=== PATIENT | male | born 1965 | race Caucasian/White ===

== ENCOUNTER 2018-11-13 14:47 | Inpatient (IN) | payer MEDICARE, OTHER ==
[2018-11-13] MEDS: HYDROmorphONE 1 MG/ML SYG IV (15:03)
[2018-11-13 16:02] LABS: ADD MAN DIFF? NO
[2018-11-13 16:04] LABS: BASOPHILS % 0.3 % (0.0-2.0); EOSINOPHILS # 0.2 10^3/ul (0.0-0.5); EOSINOPHILS % 2.3 % (0.0-7.0); HEMATOCRIT 23.3 % (42.0-52.0); HEMOGLOBIN 7.3 g/dl (14.0-18.0); LYMPHOCYTES # 0.7 10^3/ul (0.8-2.9); LYMPHOCYTES % 9.3 % (15.0-51.0); MEAN CORPUSCULAR HEMOGLOBIN 27.9 pg (29.0-33.0); MEAN CORPUSCULAR HGB CONC 31.3 g/dl (32.0-37.0); MEAN CORPUSCULAR VOLUME 88.9 fl (82.0-101.0); MEAN PLATELET VOLUME 12.2 fl (7.4-10.4); MONOCYTE # 0.4 10^3/ul (0.3-0.9); MONOCYTES % 5.5 % (0.0-11.0); NEUTROPHIL # 5.9 10^3/ul (1.6-7.5); PLATELET COUNT 187 10^3/UL (140-415); RED BLOOD COUNT 2.62 10^6/ul (4.70-6.10); RED CELL DISTRIBUTION WIDTH 14.1 % (11.5-14.5)
[2018-11-13 16:04] LABS: WHITE BLOOD COUNT 7.2 10^3/ul (4.8-10.8)
[2018-11-13 16:22] LABS: PROTIME 14.3 Sec (11.9-14.9); PT RATIO 1.1
[2018-11-13 16:23] LABS: PARTIAL THROMBOPLASTIN TIME 30.3 Sec (23.0-35.0)
[2018-11-13] MEDS: SOD CHLORIDE 0.9% 1,000 ML IV (16:45)
[2018-11-13] MEDS: DIPHTH/TET/ACEL PERTUSS (ADULT) 0.5 ML VIAL IM* (16:45)
[2018-11-13] MEDS: SOD CHLORIDE 0.9% 0 ML IV (16:46)
[2018-11-13] MEDS: CEFAZOLIN 2 GM/50 ML (PMX) 50 ML IVPB (16:57)
[2018-11-13] MEDS ORDERED: ONDANSETRON 4 MG INJ IV (17:00)
[2018-11-13] MEDS ORDERED: ACETAMINOPHEN 325 MG TAB PO (17:00)
[2018-11-13 17:03] LABS: ANION GAP 11 (5-13); BLOOD UREA NITROGEN 77 mg/dl (7-20); CALCIUM 6.4 mg/dl (8.4-10.2); CARBON DIOXIDE 15 mmol/L (21-31); CHLORIDE 114 mmol/L (97-110); CREATININE 7.88 mg/dl (0.61-1.24); ETHANOL < 10.0 mg/dl (0-0); Estimated GFR 7 mL/min (>60); GLUCOSE 302 mg/dl (70-220); POTASSIUM 5.3 mmol/L (3.5-5.1); SODIUM 140 mmol/L (135-144)
[2018-11-13] MEDS ORDERED: HYDROCODONE/APAP (5/325) TAB PO (17:30)
[2018-11-13] MEDS ORDERED: NACL 0.9% 3 ML SYG IV (17:30)
[2018-11-13] MEDS ORDERED: VANCOMYCIN IV PER PHARMACY XX (17:30)
[2018-11-13 17:54] LABS: AMPHETAMINE/METHAMPHETAMINE NEGATIVE (NEGATIVE); BARBITURATES NEGATIVE (NEGATIVE); BENZODIAZEPINES NEGATIVE (NEGATIVE); CANNABINOIDS NEGATIVE (NEGATIVE); COCAINE NEGATIVE (NEGATIVE); OPIATES NEGATIVE (NEGATIVE)
[2018-11-13 18:53] LABS: ALBUMIN 2.6 g/dl (3.3-4.9)
[2018-11-13] MEDS: morphine 2 MG INJ IV (20:23)
[2018-11-13] MEDS: SOD CHLORIDE 0.45% 1,000 ML IV (20:28)
[2018-11-13] MEDS: CEFEPIME 1GM/50 ML (PMX) 50 ML IVPB (20:29)
[2018-11-13] MEDS: FERROUS SULFATE (EC) 325 MG TAB PO (20:29)
[2018-11-13] MEDS: ATORVASTATIN 40 MG TAB PO (20:30)
[2018-11-13] MEDS: METOPROLOL 25 MG TAB PO (20:30)
[2018-11-13] MEDS: FUROSEMIDE 40 MG TAB PO (20:31)
[2018-11-13] MEDS: INSULIN ASPART [NOVOLOG] 3 ML PEN SC (21:48)
[2018-11-13] MEDS: INSULIN GLARGINE [LANTus] (100 UNITS/ML) SYG SC (21:49)
[2018-11-13] MEDS: CALCIUM GLUCONATE 10% 1 GM in DEXTROSE 5% 100 ML IVPB (21:50)
[2018-11-13] MEDS: VANCOMYCIN HCL 2 GM in SOD CHLORIDE 0.9% 500 ML IVPB (22:55)
[2018-11-14] MEDS: ACCU-CHEK XX (02:00)
[2018-11-14] MEDS: ONDANSETRON 4 MG INJ IV (04:37)
[2018-11-14] MEDS: PANTOPRAZOLE (EC) 40 MG TAB PO (06:00)
[2018-11-14] MEDS: SOD CHLORIDE 0.45% 1,000 ML IV ×2 (06:45→20:05)
[2018-11-14] MEDS: INSULIN ASPART [NOVOLOG] 3 ML PEN SC ×2 (06:57)
[2018-11-14] MEDS: THIAMINE 100 MG TAB PO (09:00)
[2018-11-14] MEDS: MULTIVIT/CA CARB/B CMPLX/FA TAB PO (09:00)
[2018-11-14] MEDS ORDERED: NON-FORMULARY/PATIENT OWN MED (Cholecalciferol (Vitamin D3) (Vitamin D-3) 2,000 UNIT) PO (09:00)
[2018-11-14] MEDS: CHOLECALCIFEROL 2,000 UNIT CAP PO (09:00)
[2018-11-14] MEDS: FUROSEMIDE 40 MG TAB PO ×2 (09:00→22:06)
[2018-11-14] MEDS: FERROUS SULFATE (EC) 325 MG TAB PO ×2 (09:00→22:11)
[2018-11-14] MEDS: METOPROLOL 25 MG TAB PO ×2 (09:00→22:07)
[2018-11-14 09:25] LABS: ADD UMIC YES; UR ASCORBIC ACID NEGATIVE (NEGATIVE); UR BACTERIA FEW /HPF (NONE SEEN); UR BILIRUBIN (Dip) NEGATIVE (NEGATIVE); UR BLOOD (Dip) 1+ mg/dL (NEGATIVE); UR CLARITY CLEAR (CLEAR); UR COLOR YELLOW (YELLOW); UR GLUCOSE (Dip) 2+ mg/dL (NEGATIVE); UR KETONES (Dip) NEGATIVE (NEGATIVE); UR LEUKOCYTE ESTERASE (Dip) NEGATIVE Leu/ul (NEGATIVE); UR NITRITE (Dip) NEGATIVE (NEGATIVE); UR RBC 1 /HPF (0-5); UR SPECIFIC GRAVITY (Dip) 1.011 (1.003-1.030); UR TOTAL PROTEIN (Dip) 3+ mg/dl (NEGATIVE); UR UROBILINOGEN (Dip) NEGATIVE (NEGATIVE); UR WBC 2 /HPF (0-5)
[2018-11-14 09:44] LABS: CREATININE,URINE RANDOM 71.23 mg/dl (20-370)
[2018-11-14 09:44] LABS: SODIUM,URINE RANDOM 67 mmol/L (30-90)
[2018-11-14 10:08] LABS: ADD MAN DIFF? NO
[2018-11-14 10:12] LABS: ABNORMAL IP MESSAGE 1; BASOPHILS % 0.4 % (0.0-2.0); EOSINOPHILS # 0.1 10^3/ul (0.0-0.5); EOSINOPHILS % 1.5 % (0.0-7.0); HEMATOCRIT 19.3 % (42.0-52.0); LYMPHOCYTES # 0.7 10^3/ul (0.8-2.9); LYMPHOCYTES % 8.9 % (15.0-51.0); MEAN CORPUSCULAR HEMOGLOBIN 28.5 pg (29.0-33.0); MEAN CORPUSCULAR HGB CONC 31.6 g/dl (32.0-37.0); MEAN CORPUSCULAR VOLUME 90.2 fl (82.0-101.0); MEAN PLATELET VOLUME 11.1 fl (7.4-10.4); MONOCYTE # 0.9 10^3/ul (0.3-0.9); MONOCYTES % 11.3 % (0.0-11.0); NEUTROPHIL # 6.4 10^3/ul (1.6-7.5); NEUTROPHILS % 77.4 % (39.0-77.0); PLATELET COUNT 137 10^3/UL (140-415); POSITIVE DIFF @See below; RED BLOOD COUNT 2.14 10^6/ul (4.70-6.10); RED CELL DISTRIBUTION WIDTH 14.3 % (11.5-14.5)
[2018-11-14 10:12] LABS: WHITE BLOOD COUNT 8.2 10^3/ul (4.8-10.8)
[2018-11-14 10:21] LABS: HEMOGLOBIN A1C 7.7 % (0-5.9)
[2018-11-14 10:23] LABS: HEMOGLOBIN 6.1 g/dl (14.0-18.0)
[2018-11-14 10:24] LABS: PATH REVIEW? YES
[2018-11-14 10:32] LABS: ALANINE AMINOTRANSFERASE 21 IU/L (13-69); ALBUMIN 2.4 g/dl (3.3-4.9); ALBUMIN/GLOBULIN RATIO 1.14; ALKALINE PHOSPHATASE 57 IU/L (42-121); ANION GAP 9 (5-13); ASPARTATE AMINO TRANSFERASE 13 IU/L (15-46); BILIRUBIN,INDIRECT 0.3 mg/dl (0-1.1); BILIRUBIN,TOTAL 0.3 mg/dl (0.2-1.3); BLOOD UREA NITROGEN 76 mg/dl (7-20); CALCIUM 6.1 mg/dl (8.4-10.2); CARBON DIOXIDE 14 mmol/L (21-31); CHLORIDE 116 mmol/L (97-110); CHOL/HDL RATIO 5.3 RATIO; CHOLESTEROL 86 mg/dl (100-200); CREATININE 7.96 mg/dl (0.61-1.24); Estimated GFR 7 mL/min (>60); GLUCOSE 158 mg/dl (70-220); HDL CHOLESTEROL 16 mg/dl (28-71); LDL CHOLESTEROL,CALCULATED 49 mg/dl; MAGNESIUM 1.4 mg/dl (1.7-2.5); POTASSIUM 4.9 mmol/L (3.5-5.1); SODIUM 139 mmol/L (135-144); TOTAL PROTEIN 4.5 g/dl (6.1-8.1); TRIGLYCERIDES 106 mg/dl (0-149)
[2018-11-14] MEDS ORDERED: INSULIN ASPART [NOVOLOG] 3 ML PEN SC (12:00)
[2018-11-14] MEDS: Insulin NOVOLOG SS MODERATE Algorithm(NPO/TPN/ENTERAL FEEDS) SC ×2 (12:08→17:49)
[2018-11-14 15:55] LABS: PARATHYROID HORMONE 358.6 pg/ml (24.0-73.0)
[2018-11-14] MEDS: EPOETIN ALFA-EPBX (ESRD) 10,000 UNIT/ML VIAL SC (17:42)
[2018-11-14 17:52] LABS: HEPATITIS B SURFACE ANTIGEN NEGATIVE (NEGATIVE)
[2018-11-14 18:15] LABS: HEPATITIS B SURFACE ANTIBODY NEGATIVE (NEGATIVE)
[2018-11-14] MEDS ORDERED: MANNITOL 25% 50 ML IV (19:00)
[2018-11-14 20:53] LABS: IMMEDIATE SPIN CROSSMATCH 1
[2018-11-14 21:54] LABS: IMMEDIATE SPIN CROSSMATCH 1 13
[2018-11-14] MEDS: ATORVASTATIN 10 MG TAB PO (22:06)
[2018-11-14] MEDS: ATORVASTATIN 40 MG TAB PO (22:06)
[2018-11-14] MEDS: hydrALAzine 20 MG INJ IV (22:07)
[2018-11-14] MEDS: HEPARIN 1000 UNITS/ML 10 ML INJ CATHETER (22:39)
[2018-11-14] MEDS: CEFEPIME 1GM/50 ML (PMX) 50 ML IVPB (23:44)
[2018-11-14] MEDS: morphine 2 MG INJ IV (23:55)
[2018-11-15] MEDS: Insulin NOVOLOG SS MODERATE Algorithm(NPO/TPN/ENTERAL FEEDS) SC ×4 (00:07→23:44)
[2018-11-15] MEDS: INSULIN GLARGINE [LANTus] (100 UNITS/ML) SYG SC ×2 (00:08→23:44)
[2018-11-15] MEDS: MAGNESIUM SULFATE 3 GM in DEXTROSE 5% 100 ML IVPB (00:43)
[2018-11-15] MEDS: ACCU-CHEK XX (02:00)
[2018-11-15] MEDS ORDERED: LORAZEPAM 2 MG INJ IV (02:30)
[2018-11-15] MEDS: DIPHENHYDRAMINE 50 MG INJ IV (02:40)
[2018-11-15 03:58] LABS: PROTEIN, TOTAL 4.2 g/dL (6.1-8.1)
[2018-11-15 05:27] LABS: ADD MAN DIFF? NO
[2018-11-15 05:33] LABS: ABNORMAL IP MESSAGE 1; BASOPHILS % 0.5 % (0.0-2.0); EOSINOPHILS # 0.2 10^3/ul (0.0-0.5); EOSINOPHILS % 1.7 % (0.0-7.0); HEMATOCRIT 22.6 % (42.0-52.0); HEMOGLOBIN 7.4 g/dl (14.0-18.0); LYMPHOCYTES # 0.4 10^3/ul (0.8-2.9); LYMPHOCYTES % 4.6 % (15.0-51.0); MEAN CORPUSCULAR HEMOGLOBIN 29.2 pg (29.0-33.0); MEAN CORPUSCULAR HGB CONC 32.7 g/dl (32.0-37.0); MEAN CORPUSCULAR VOLUME 89.3 fl (82.0-101.0); MEAN PLATELET VOLUME 11.9 fl (7.4-10.4); MONOCYTES % 11.4 % (0.0-11.0); NEUTROPHIL # 7.1 10^3/ul (1.6-7.5); NEUTROPHILS % 81.1 % (39.0-77.0); PLATELET COUNT 125 10^3/UL (140-415); POSITIVE DIFF @See below; RED BLOOD COUNT 2.53 10^6/ul (4.70-6.10); RED CELL DISTRIBUTION WIDTH 14.3 % (11.5-14.5)
[2018-11-15 05:33] LABS: WHITE BLOOD COUNT 8.7 10^3/ul (4.8-10.8)
[2018-11-15] MEDS: PANTOPRAZOLE (EC) 40 MG TAB PO (06:00)
[2018-11-15 06:14] LABS: VANCOMYCIN,RANDOM 12.7 ug/ml
[2018-11-15 06:35] LABS: ANION GAP 10 (5-13); BLOOD UREA NITROGEN 62 mg/dl (7-20); CALCIUM 6.4 mg/dl (8.4-10.2); CARBON DIOXIDE 18 mmol/L (21-31); CHLORIDE 113 mmol/L (97-110); CREATININE 6.28 mg/dl (0.61-1.24); Estimated GFR 9 mL/min (>60); GLUCOSE 148 mg/dl (70-220); MAGNESIUM 2.1 mg/dl (1.7-2.5); PHOSPHORUS 4.8 mg/dl (2.5-4.9); POTASSIUM 4.4 mmol/L (3.5-5.1); SODIUM 141 mmol/L (135-144)
[2018-11-15] MEDS: FUROSEMIDE 40 MG TAB PO ×2 (09:00→23:24)
[2018-11-15] MEDS: MULTIVIT/CA CARB/B CMPLX/FA TAB PO (09:00)
[2018-11-15] MEDS: THIAMINE 100 MG TAB PO (09:00)
[2018-11-15] MEDS: FERROUS SULFATE (EC) 325 MG TAB PO ×2 (09:00→23:17)
[2018-11-15] MEDS: METOPROLOL 25 MG TAB PO ×2 (09:00→23:21)
[2018-11-15] MEDS: CHOLECALCIFEROL 2,000 UNIT CAP PO (09:00)
[2018-11-15] MEDS: SOD CHLORIDE 0.45% 1,000 ML IV ×2 (09:25→22:45)
[2018-11-15] MEDS: hydrALAzine 20 MG INJ IV ×2 (11:01→19:26)
[2018-11-15] MEDS ORDERED: BUPIVACAINE 0.25% (MPF) 30 ML INJ (14:51)
[2018-11-15] MEDS ORDERED: POLYMYXIN/BACITRACIN 1L IRRIG (14:52)
[2018-11-15] MEDS ORDERED: SUCCINYLCHOLINE CHLORIDE 100 MG/5 ML SYG IV (15:22)
[2018-11-15] MEDS ORDERED: DESFLURANE 15 MIN (15:22)
[2018-11-15] MEDS ORDERED: ROCURONIUM 50 MG INJ (15:22)
[2018-11-15] MEDS ORDERED: CEFAZOLIN 1 GM INJ (15:23)
[2018-11-15] MEDS ORDERED: ROPIVACAINE 0.5 % 30 ML VIAL (15:23)
[2018-11-15] MEDS ORDERED: morphine SULFATE/PF (10 MG/10 ML) INJ (15:23)
[2018-11-15] MEDS ORDERED: MIDAZOLAM 1 MG/ML 2 ML INJ (15:23)
[2018-11-15] MEDS ORDERED: PROPOFOL 100 ML (15:23)
[2018-11-15] MEDS ORDERED: BACITRACIN 50000 UNITS INJ (15:49)
[2018-11-15] MEDS ORDERED: VANCOMYCIN 1 GM INJ ×2 (15:51→15:57)
[2018-11-15] MEDS ORDERED: POLYMYXIN B 500000 UNIT INJ (15:52)
[2018-11-15 15:57] LABS: CREATININE, RANDOM URINE 77 mg/dL (20-320); MICROALBUMIN 231.9 mg/dL; MICROALBUMIN/CREATININE RATIO 3012 (<30); PROTEIN/CREATININE RATIO 5766 mg/g creat (22-128)
[2018-11-15] MEDS ORDERED: VANCOMYCIN 1 GM 250 ML IVPB (18:00)
[2018-11-15] MEDS ORDERED: SUGAMMADEX SODIUM 200 MG/2 ML VIAL IV (18:14)
[2018-11-15] MEDS ORDERED: DEXAMETHASONE 4 MG/ML 5 ML INJ (18:18)
[2018-11-15] MEDS ORDERED: ONDANSETRON 4 MG INJ (18:18)
[2018-11-15] MEDS ORDERED: METOCLOPRAMIDE 10 MG INJ (18:18)
[2018-11-15] MEDS ORDERED: morphine 2 MG INJ IV ×2 (18:30)
[2018-11-15] MEDS ORDERED: OXYCODONE/ACETAMINOPHEN (5/325) TAB PO (18:30)
[2018-11-15] MEDS ORDERED: ACETAMINOPHEN 500 MG TAB PO (18:30)
[2018-11-15] MEDS ORDERED: HYDROCODONE/APAP (5/325) TAB PO (18:30)
[2018-11-15] MEDS ORDERED: MEPERIDINE 25 MG INJ IV (18:30)
[2018-11-15] MEDS ORDERED: ONDANSETRON 4 MG INJ IV ×2 (18:30)
[2018-11-15] MEDS ORDERED: NALBUPHINE HCL (10 MG/1 ML) INJ IV (18:30)
[2018-11-15] MEDS ORDERED: EPHEDrine 25 MG/5 ML SYG IV (18:30)
[2018-11-15] MEDS ORDERED: NALOXONE (0.4 MG/ML) INJ IV (18:30)
[2018-11-15] MEDS ORDERED: HYDROmorphONE 0.5 MG/0.5 ML SYG IV ×2 (18:30)
[2018-11-15] MEDS ORDERED: METOCLOPRAMIDE 10 MG INJ IV (18:30)
[2018-11-15] MEDS ORDERED: HYDROmorphONE 1 MG/5 ML IV SYRINGE IV ×2 (18:30)
[2018-11-15] MEDS ORDERED: FENTAnyl 50 MCG/ML VIAL IV ×2 (18:30)
[2018-11-15] MEDS ORDERED: DIPHENHYDRAMINE 50 MG INJ IV ×2 (18:30)
[2018-11-15 19:02] LABS: ADD MAN DIFF? NO
[2018-11-15 19:04] LABS: BASOPHIL # 0.1 10^3/ul (0.0-0.1); BASOPHILS % 0.5 % (0.0-2.0); EOSINOPHILS # 0.2 10^3/ul (0.0-0.5); EOSINOPHILS % 2.1 % (0.0-7.0); HEMATOCRIT 27.6 % (42.0-52.0); HEMOGLOBIN 8.9 g/dl (14.0-18.0); LYMPHOCYTES # 1.1 10^3/ul (0.8-2.9); LYMPHOCYTES % 11.4 % (15.0-51.0); MEAN CORPUSCULAR HEMOGLOBIN 29.2 pg (29.0-33.0); MEAN CORPUSCULAR HGB CONC 32.2 g/dl (32.0-37.0); MEAN CORPUSCULAR VOLUME 90.5 fl (82.0-101.0); MEAN PLATELET VOLUME 10.7 fl (7.4-10.4); MONOCYTE # 1.3 10^3/ul (0.3-0.9); MONOCYTES % 12.7 % (0.0-11.0); NEUTROPHIL # 7.2 10^3/ul (1.6-7.5); NEUTROPHILS % 72.4 % (39.0-77.0); PLATELET COUNT 140 10^3/UL (140-415); RED BLOOD COUNT 3.05 10^6/ul (4.70-6.10); RED CELL DISTRIBUTION WIDTH 14.5 % (11.5-14.5)
[2018-11-15 19:07] LABS: ALBUMIN 2.1 g/dL (3.8-4.8); ALPHA-1-GLOBULINS 0.3 g/dL (0.2-0.3); ALPHA-2-GLOBULINS 0.7 g/dL (0.5-0.9); BETA 2 GLOBULINS 0.3 g/dL (0.2-0.5); BETA GLOBULINS 0.3 g/dL (0.4-0.6); GAMMA GLOBULINS 0.5 g/dL (0.8-1.7)
[2018-11-15] MEDS ORDERED: hydrALAzine 20 MG INJ (19:24)
[2018-11-15] MEDS: ENOXAPARIN 30 MG/0.3 ML SYG SC (19:30)
[2018-11-15] MEDS ORDERED: LABETALOL HCL 20MG INJ (19:48)
[2018-11-15] MEDS: LABETALOL HCL 20MG INJ IV (19:49)
[2018-11-15] MEDS ORDERED: CEFAZOLIN 1 GM/50 ML (PMX) 50 ML IVPB (19:58)
[2018-11-15] MEDS: CEFAZOLIN 1 GM/50 ML (PMX) 50 ML IVPB (20:00)
[2018-11-15] MEDS: ATORVASTATIN 40 MG TAB PO (23:17)
[2018-11-15] MEDS: ATORVASTATIN 10 MG TAB PO (23:17)
[2018-11-15] MEDS: SOD CHLORIDE 0.9% 1,000 ML IV (23:33)
[2018-11-16] MEDS: hydrALAzine 20 MG INJ IV ×4 (00:48→21:37)
[2018-11-16] MEDS: ACCU-CHEK XX (02:00)
[2018-11-16] MEDS: SOD CHLORIDE 0.9% 1,000 ML IV ×2 (04:37→08:11)
[2018-11-16] MEDS: PANTOPRAZOLE (EC) 40 MG TAB PO (05:14)
[2018-11-16] MEDS: Insulin NOVOLOG SS MODERATE Algorithm(NPO/TPN/ENTERAL FEEDS) SC ×2 (05:44)
[2018-11-16 05:49] LABS: ADD MAN DIFF? NO
[2018-11-16 05:51] LABS: WHITE BLOOD COUNT 11.3 10^3/ul (4.8-10.8)
[2018-11-16 05:51] LABS: ABNORMAL IP MESSAGE 1; BASOPHILS % 0.2 % (0.0-2.0); HEMATOCRIT 28.7 % (42.0-52.0); HEMOGLOBIN 9.2 g/dl (14.0-18.0); LYMPHOCYTES # 0.3 10^3/ul (0.8-2.9); LYMPHOCYTES % 2.4 % (15.0-51.0); MEAN CORPUSCULAR HEMOGLOBIN 28.8 pg (29.0-33.0); MEAN CORPUSCULAR HGB CONC 32.1 g/dl (32.0-37.0); MEAN PLATELET VOLUME 11.3 fl (7.4-10.4); MONOCYTE # 0.3 10^3/ul (0.3-0.9); MONOCYTES % 2.8 % (0.0-11.0); NEUTROPHIL # 10.5 10^3/ul (1.6-7.5); NEUTROPHILS % 93.1 % (39.0-77.0); PLATELET COUNT 137 10^3/UL (140-415); POSITIVE DIFF @See below; RED BLOOD COUNT 3.19 10^6/ul (4.70-6.10); RED CELL DISTRIBUTION WIDTH 14.6 % (11.5-14.5)
[2018-11-16 06:09] LABS: ANION GAP 12 (5-13); BLOOD UREA NITROGEN 60 mg/dl (7-20); CALCIUM 6.8 mg/dl (8.4-10.2); CARBON DIOXIDE 16 mmol/L (21-31); CHLORIDE 109 mmol/L (97-110); CREATININE 6.95 mg/dl (0.61-1.24); Estimated GFR 8 mL/min (>60); GLUCOSE 273 mg/dl (70-220); MAGNESIUM 1.8 mg/dl (1.7-2.5); PHOSPHORUS 6.5 mg/dl (2.5-4.9); POTASSIUM 4.9 mmol/L (3.5-5.1); SODIUM 137 mmol/L (135-144)
[2018-11-16] MEDS: Insulin NOVOLOG SS MODERATE Algorithm (SS with meals and bedtime) SC ×4 (08:00→21:19)
[2018-11-16] MEDS: MULTIVIT/CA CARB/B CMPLX/FA TAB PO (08:12)
[2018-11-16] MEDS: FERROUS SULFATE (EC) 325 MG TAB PO ×2 (08:13→21:01)
[2018-11-16] MEDS: CHOLECALCIFEROL 2,000 UNIT CAP PO (08:13)
[2018-11-16] MEDS: THIAMINE 100 MG TAB PO (08:13)
[2018-11-16] MEDS: METOPROLOL 25 MG TAB PO ×2 (08:15→21:01)
[2018-11-16] MEDS: FUROSEMIDE 40 MG TAB PO ×2 (08:16→21:00)
[2018-11-16] MEDS ORDERED: hydrALAzine 20 MG INJ IV (10:00)
[2018-11-16] MEDS: NIFEdipine (XL) 30 MG TAB PO ×2 (10:07→21:00)
[2018-11-16] MEDS ORDERED: INSULIN ASPART [NOVOLOG] 3 ML PEN SC (11:30)
[2018-11-16] MEDS: HEPARIN 1000 UNITS/ML 10 ML INJ CATHETER (14:13)
[2018-11-16] MEDS: CEFTRIAXONE 1 GM/50 ML (PMX) 50 ML IVPB (15:40)
[2018-11-16] MEDS: EPOETIN ALFA-EPBX (ESRD) 10,000 UNIT/ML VIAL SC (17:39)
[2018-11-16] MEDS: INSULIN ASPART [NOVOLOG] 3 ML PEN SC (17:43)
[2018-11-16] MEDS: ATORVASTATIN 40 MG TAB PO (20:59)
[2018-11-16] MEDS: ATORVASTATIN 10 MG TAB PO (20:59)
[2018-11-16] MEDS: INSULIN GLARGINE [LANTus] (100 UNITS/ML) SYG SC (21:18)
[2018-11-16] MEDS: HEPARIN 5,000 UNIT/1 ML VIAL SC (21:22)
[2018-11-17] MEDS: ACCU-CHEK XX (02:14)
[2018-11-17] MEDS: ACETAMINOPHEN 325 MG TAB PO (04:48)
[2018-11-17] MEDS: PANTOPRAZOLE (EC) 40 MG TAB PO (05:41)
[2018-11-17 06:08] LABS: ADD MAN DIFF? NO
[2018-11-17 06:13] LABS: WHITE BLOOD COUNT 10.8 10^3/ul (4.8-10.8)
[2018-11-17 06:13] LABS: BASOPHILS % 0.2 % (0.0-2.0); EOSINOPHILS # 0.2 10^3/ul (0.0-0.5); EOSINOPHILS % 1.9 % (0.0-7.0); HEMATOCRIT 25.1 % (42.0-52.0); LYMPHOCYTES # 0.8 10^3/ul (0.8-2.9); LYMPHOCYTES % 7.1 % (15.0-51.0); MEAN CORPUSCULAR HEMOGLOBIN 28.6 pg (29.0-33.0); MEAN CORPUSCULAR HGB CONC 31.9 g/dl (32.0-37.0); MEAN CORPUSCULAR VOLUME 89.6 fl (82.0-101.0); MEAN PLATELET VOLUME 12.1 fl (7.4-10.4); MONOCYTE # 1.1 10^3/ul (0.3-0.9); MONOCYTES % 10.3 % (0.0-11.0); NEUTROPHIL # 8.5 10^3/ul (1.6-7.5); NEUTROPHILS % 79.2 % (39.0-77.0); PLATELET COUNT 155 10^3/UL (140-415); RED CELL DISTRIBUTION WIDTH 14.6 % (11.5-14.5)
[2018-11-17 07:06] LABS: ANION GAP 9 (5-13); BLOOD UREA NITROGEN 55 mg/dl (7-20); CALCIUM 6.5 mg/dl (8.4-10.2); CARBON DIOXIDE 21 mmol/L (21-31); CHLORIDE 106 mmol/L (97-110); CREATININE 6.13 mg/dl (0.61-1.24); Estimated GFR 10 mL/min (>60); GLUCOSE 246 mg/dl (70-220); MAGNESIUM 1.7 mg/dl (1.7-2.5); PHOSPHORUS 5.2 mg/dl (2.5-4.9); POTASSIUM 3.8 mmol/L (3.5-5.1); SODIUM 136 mmol/L (135-144)
[2018-11-17] MEDS: SEVELAMER CARBONATE 800 MG TABLET PO ×2 (08:43→12:37)
[2018-11-17] MEDS: FUROSEMIDE 40 MG TAB PO ×2 (08:44→23:54)
[2018-11-17] MEDS: THIAMINE 100 MG TAB PO (08:45)
[2018-11-17] MEDS: CHOLECALCIFEROL 2,000 UNIT CAP PO (08:45)
[2018-11-17] MEDS: MULTIVIT/CA CARB/B CMPLX/FA TAB PO (08:45)
[2018-11-17] MEDS: METOPROLOL 25 MG TAB PO ×2 (08:46→23:54)
[2018-11-17] MEDS: NIFEdipine (XL) 30 MG TAB PO ×2 (08:46→23:53)
[2018-11-17] MEDS: Insulin NOVOLOG SS MODERATE Algorithm (SS with meals and bedtime) SC ×4 (08:52→21:00)
[2018-11-17] MEDS: HEPARIN 5,000 UNIT/1 ML VIAL SC ×2 (08:52→20:44)
[2018-11-17] MEDS: INSULIN ASPART [NOVOLOG] 3 ML PEN SC ×3 (08:52→18:00)
[2018-11-17] MEDS: FERROUS SULFATE (EC) 325 MG TAB PO ×2 (08:56→20:43)
[2018-11-17] MEDS: hydrALAzine 20 MG INJ IV ×2 (17:47→23:54)
[2018-11-17] MEDS: LABETALOL HCL 20MG INJ IV (18:53)
[2018-11-17] MEDS: ATORVASTATIN 10 MG TAB PO (20:43)
[2018-11-17] MEDS: INSULIN GLARGINE [LANTus] (100 UNITS/ML) SYG SC (20:46)
[2018-11-17] MEDS: HEPARIN 1000 UNITS/ML 10 ML INJ CATHETER (21:45)
[2018-11-18] MEDS: HYDROCODONE/APAP (5/325) TAB PO (01:32)
[2018-11-18] MEDS: ACCU-CHEK XX (02:00)
[2018-11-18] MEDS: LABETALOL HCL 20MG INJ IV ×2 (03:37→03:45)
[2018-11-18] MEDS: ONDANSETRON 4 MG INJ IV ×3 (03:42→17:33)
[2018-11-18] MEDS: morphine 4 MG/ML VIAL IV (03:45)
[2018-11-18] MEDS: PANTOPRAZOLE (EC) 40 MG TAB PO (03:49)
[2018-11-18 06:19] LABS: ADD MAN DIFF? NO
[2018-11-18 06:31] LABS: WHITE BLOOD COUNT 10.1 10^3/ul (4.8-10.8)
[2018-11-18 06:31] LABS: BASOPHILS % 0.4 % (0.0-2.0); EOSINOPHILS # 0.3 10^3/ul (0.0-0.5); EOSINOPHILS % 2.5 % (0.0-7.0); HEMATOCRIT 25.9 % (42.0-52.0); HEMOGLOBIN 8.4 g/dl (14.0-18.0); LYMPHOCYTES # 0.7 10^3/ul (0.8-2.9); LYMPHOCYTES % 6.5 % (15.0-51.0); MEAN CORPUSCULAR HEMOGLOBIN 29.1 pg (29.0-33.0); MEAN CORPUSCULAR HGB CONC 32.4 g/dl (32.0-37.0); MEAN CORPUSCULAR VOLUME 89.6 fl (82.0-101.0); MONOCYTE # 1.2 10^3/ul (0.3-0.9); MONOCYTES % 11.8 % (0.0-11.0); NEUTROPHIL # 7.9 10^3/ul (1.6-7.5); NEUTROPHILS % 77.6 % (39.0-77.0); PLATELET COUNT 167 10^3/UL (140-415); RED BLOOD COUNT 2.89 10^6/ul (4.70-6.10); RED CELL DISTRIBUTION WIDTH 14.2 % (11.5-14.5)
[2018-11-18 07:23] LABS: ANION GAP 10 (5-13); BLOOD UREA NITROGEN 39 mg/dl (7-20); CALCIUM 6.7 mg/dl (8.4-10.2); CARBON DIOXIDE 26 mmol/L (21-31); CHLORIDE 98 mmol/L (97-110); CREATININE 4.42 mg/dl (0.61-1.24); Estimated GFR 14 mL/min (>60); GLUCOSE 221 mg/dl (70-220); MAGNESIUM 1.5 mg/dl (1.7-2.5); PHOSPHORUS 4.5 mg/dl (2.5-4.9); POTASSIUM 3.8 mmol/L (3.5-5.1); SODIUM 134 mmol/L (135-144)
[2018-11-18] MEDS: NIFEdipine (XL) 30 MG TAB PO ×2 (08:16→20:42)
[2018-11-18] MEDS: METOPROLOL 50 MG TAB PO ×2 (08:19→20:43)
[2018-11-18] MEDS: FUROSEMIDE 40 MG TAB PO ×2 (08:19→20:42)
[2018-11-18 08:27] LABS: VANCOMYCIN,RANDOM 8.1 ug/ml
[2018-11-18] MEDS: Insulin NOVOLOG SS MODERATE Algorithm (SS with meals and bedtime) SC ×4 (08:35→20:52)
[2018-11-18] MEDS: INSULIN ASPART [NOVOLOG] 3 ML PEN SC ×3 (08:35→17:28)
[2018-11-18] MEDS: HEPARIN 5,000 UNIT/1 ML VIAL SC ×2 (08:35→20:52)
[2018-11-18] MEDS: MULTIVIT/CA CARB/B CMPLX/FA TAB PO (10:07)
[2018-11-18] MEDS: THIAMINE 100 MG TAB PO (10:07)
[2018-11-18] MEDS: SEVELAMER CARBONATE 800 MG TABLET PO ×4 (10:07→17:29)
[2018-11-18] MEDS: FERROUS SULFATE (EC) 325 MG TAB PO ×2 (10:08→20:41)
[2018-11-18] MEDS: CEFTRIAXONE 1 GM/50 ML (PMX) 50 ML IVPB (10:08)
[2018-11-18] MEDS: CHOLECALCIFEROL 2,000 UNIT CAP PO (10:08)
[2018-11-18] MEDS: hydrALAzine 20 MG INJ IV (12:48)
[2018-11-18] MEDS: VANCOMYCIN 1.25 GM/NS 250 ML 250 ML IVPB (13:11)
[2018-11-18] MEDS: ATORVASTATIN 10 MG TAB PO (20:41)
[2018-11-18] MEDS: INSULIN GLARGINE [LANTus] (100 UNITS/ML) SYG SC (20:52)
[2018-11-19] MEDS: ACCU-CHEK XX (02:00)
[2018-11-19 05:53] LABS: ADD MAN DIFF? NO
[2018-11-19 06:00] LABS: BASOPHILS % 0.4 % (0.0-2.0); EOSINOPHILS # 0.3 10^3/ul (0.0-0.5); EOSINOPHILS % 2.6 % (0.0-7.0); HEMATOCRIT 24.6 % (42.0-52.0); LYMPHOCYTES # 0.8 10^3/ul (0.8-2.9); LYMPHOCYTES % 8.1 % (15.0-51.0); MEAN CORPUSCULAR HEMOGLOBIN 28.8 pg (29.0-33.0); MEAN CORPUSCULAR HGB CONC 32.5 g/dl (32.0-37.0); MEAN CORPUSCULAR VOLUME 88.5 fl (82.0-101.0); MEAN PLATELET VOLUME 11.6 fl (7.4-10.4); NEUTROPHIL # 7.6 10^3/ul (1.6-7.5); NEUTROPHILS % 77.5 % (39.0-77.0); PLATELET COUNT 167 10^3/UL (140-415); RED BLOOD COUNT 2.78 10^6/ul (4.70-6.10); RED CELL DISTRIBUTION WIDTH 13.7 % (11.5-14.5)
[2018-11-19 06:00] LABS: WHITE BLOOD COUNT 9.8 10^3/ul (4.8-10.8)
[2018-11-19] MEDS: PANTOPRAZOLE 40 MG INJ IV (06:31)
[2018-11-19 06:55] LABS: ANION GAP 10 (5-13); BLOOD UREA NITROGEN 42 mg/dl (7-20); CALCIUM 6.5 mg/dl (8.4-10.2); CARBON DIOXIDE 25 mmol/L (21-31); CHLORIDE 100 mmol/L (97-110); CREATININE 5.34 mg/dl (0.61-1.24); Estimated GFR 11 mL/min (>60); GLUCOSE 135 mg/dl (70-220); MAGNESIUM 1.6 mg/dl (1.7-2.5); PHOSPHORUS 4.7 mg/dl (2.5-4.9); POTASSIUM 3.7 mmol/L (3.5-5.1); SODIUM 135 mmol/L (135-144)
[2018-11-19] MEDS: Insulin NOVOLOG SS MODERATE Algorithm (SS with meals and bedtime) SC ×4 (08:00→20:57)
[2018-11-19] MEDS: SEVELAMER CARBONATE 800 MG TABLET PO ×3 (08:20→17:23)
[2018-11-19] MEDS: MAGNESIUM SULFATE 2 GM/50 ML 50 ML IVPB (08:27)
[2018-11-19] MEDS: INSULIN ASPART [NOVOLOG] 3 ML PEN SC ×3 (08:38→17:46)
[2018-11-19] MEDS: CEFTRIAXONE 1 GM/50 ML (PMX) 50 ML IVPB (09:20)
[2018-11-19] MEDS: MULTIVIT/CA CARB/B CMPLX/FA TAB PO (09:25)
[2018-11-19] MEDS: THIAMINE 100 MG TAB PO (09:25)
[2018-11-19] MEDS: FUROSEMIDE 40 MG TAB PO ×2 (09:26→20:55)
[2018-11-19] MEDS: FERROUS SULFATE (EC) 325 MG TAB PO ×2 (09:26→20:56)
[2018-11-19] MEDS: CHOLECALCIFEROL 2,000 UNIT CAP PO (09:26)
[2018-11-19] MEDS: HEPARIN 5,000 UNIT/1 ML VIAL SC ×2 (09:41→21:58)
[2018-11-19] MEDS: METOPROLOL 50 MG TAB PO ×2 (09:49→20:56)
[2018-11-19] MEDS: NIFEdipine (XL) 30 MG TAB PO ×2 (09:49→20:56)
[2018-11-19] MEDS ORDERED: ALBUTEROL 0.083% (NEB) 2.5 MG/3 ML AMP HHN (10:00)
[2018-11-19] MEDS: hydrALAzine 20 MG INJ IV (12:25)
[2018-11-19] MEDS: EPOETIN ALFA-EPBX (ESRD) 10,000 UNIT/ML VIAL SC (17:25)
[2018-11-19] MEDS: ATORVASTATIN 10 MG TAB PO (21:03)
[2018-11-19] MEDS: INSULIN GLARGINE [LANTus] (100 UNITS/ML) SYG SC (21:59)
[2018-11-20] MEDS: ACCU-CHEK XX (02:00)
[2018-11-20] MEDS: PANTOPRAZOLE 40 MG INJ IV (06:33)
[2018-11-20] MEDS: INSULIN ASPART [NOVOLOG] 3 ML PEN SC ×3 (07:50→18:01)
[2018-11-20] MEDS: Insulin NOVOLOG SS MODERATE Algorithm (SS with meals and bedtime) SC ×4 (07:50→20:29)
[2018-11-20] MEDS: SEVELAMER CARBONATE 800 MG TABLET PO ×3 (07:51→17:37)
[2018-11-20] MEDS: HEPARIN 1000 UNITS/ML 10 ML INJ CATHETER (12:41)
[2018-11-20] MEDS: CHOLECALCIFEROL 2,000 UNIT CAP PO (12:44)
[2018-11-20] MEDS: THIAMINE 100 MG TAB PO (12:44)
[2018-11-20] MEDS: NIFEdipine (XL) 30 MG TAB PO ×2 (12:45→20:29)
[2018-11-20] MEDS: FUROSEMIDE 40 MG TAB PO ×2 (12:45→20:28)
[2018-11-20] MEDS: MULTIVIT/CA CARB/B CMPLX/FA TAB PO (12:46)
[2018-11-20] MEDS: FERROUS SULFATE (EC) 325 MG TAB PO ×2 (12:46→20:28)
[2018-11-20] MEDS: METOPROLOL 50 MG TAB PO ×2 (12:47→20:28)
[2018-11-20] MEDS: CEFTRIAXONE 1 GM/50 ML (PMX) 50 ML IVPB (12:49)
[2018-11-20] MEDS: HEPARIN 5,000 UNIT/1 ML VIAL SC ×2 (13:19→21:07)
[2018-11-20] MEDS: ATORVASTATIN 10 MG TAB PO (20:28)
[2018-11-20] MEDS: INSULIN GLARGINE [LANTus] (100 UNITS/ML) SYG SC (21:08)
[2018-11-21] MEDS: HYDROCODONE/APAP (5/325) TAB PO ×3 (00:30→17:11)
[2018-11-21] MEDS: ACCU-CHEK XX (02:00)
[2018-11-21] MEDS: PANTOPRAZOLE 40 MG INJ IV (05:22)
[2018-11-21 05:39] LABS: ADD MAN DIFF? NO
[2018-11-21 05:44] LABS: WHITE BLOOD COUNT 10.2 10^3/ul (4.8-10.8)
[2018-11-21 05:44] LABS: BASOPHIL # 0.1 10^3/ul (0.0-0.1); BASOPHILS % 0.6 % (0.0-2.0); EOSINOPHILS # 0.3 10^3/ul (0.0-0.5); EOSINOPHILS % 2.7 % (0.0-7.0); HEMATOCRIT 28.2 % (42.0-52.0); HEMOGLOBIN 9.3 g/dl (14.0-18.0); LYMPHOCYTES # 1.1 10^3/ul (0.8-2.9); LYMPHOCYTES % 10.5 % (15.0-51.0); MEAN CORPUSCULAR HEMOGLOBIN 29.2 pg (29.0-33.0); MEAN CORPUSCULAR VOLUME 88.4 fl (82.0-101.0); MEAN PLATELET VOLUME 10.9 fl (7.4-10.4); MONOCYTE # 1.1 10^3/ul (0.3-0.9); MONOCYTES % 10.5 % (0.0-11.0); NEUTROPHIL # 7.6 10^3/ul (1.6-7.5); NEUTROPHILS % 74.8 % (39.0-77.0); PLATELET COUNT 226 10^3/UL (140-415); RED BLOOD COUNT 3.19 10^6/ul (4.70-6.10); RED CELL DISTRIBUTION WIDTH 13.7 % (11.5-14.5)
[2018-11-21 06:14] LABS: ANION GAP 9 (5-13); BLOOD UREA NITROGEN 41 mg/dl (7-20); CALCIUM 7.2 mg/dl (8.4-10.2); CARBON DIOXIDE 26 mmol/L (21-31); CHLORIDE 101 mmol/L (97-110); CREATININE 4.89 mg/dl (0.61-1.24); GLUCOSE 152 mg/dl (70-220); PHOSPHORUS 4.6 mg/dl (2.5-4.9); POTASSIUM 3.7 mmol/L (3.5-5.1); SODIUM 136 mmol/L (135-144)
[2018-11-21 06:18] LABS: VANCOMYCIN,RANDOM 9.9 ug/ml
[2018-11-21] MEDS: SEVELAMER CARBONATE 800 MG TABLET PO ×2 (07:47→11:43)
[2018-11-21] MEDS: INSULIN ASPART [NOVOLOG] 3 ML PEN SC ×2 (07:56→11:46)
[2018-11-21] MEDS: Insulin NOVOLOG SS MODERATE Algorithm (SS with meals and bedtime) SC ×2 (07:57→11:39)
[2018-11-21] MEDS: CHOLECALCIFEROL 2,000 UNIT CAP PO (08:52)
[2018-11-21] MEDS: NIFEdipine (XL) 30 MG TAB PO (08:52)
[2018-11-21] MEDS: METOPROLOL 50 MG TAB PO (08:53)
[2018-11-21] MEDS: FUROSEMIDE 40 MG TAB PO (08:54)
[2018-11-21] MEDS: FERROUS SULFATE (EC) 325 MG TAB PO (08:54)
[2018-11-21] MEDS: THIAMINE 100 MG TAB PO (08:54)
[2018-11-21] MEDS: MULTIVIT/CA CARB/B CMPLX/FA TAB PO (08:54)
[2018-11-21] MEDS: HEPARIN 5,000 UNIT/1 ML VIAL SC (09:03)
[2018-11-21] MEDS: CEFTRIAXONE 1 GM/50 ML (PMX) 50 ML IVPB (10:37)
[2018-11-21] MEDS ORDERED: VANCOMYCIN 1.25 GM/NS 250 ML 250 ML IVPB (14:00)
[2018-11-22] MEDS ORDERED: PANTOPRAZOLE (EC) 40 MG TAB PO (06:00)
== END 2018-11-21 18:03 | DRG 492 ==
LOC: E/R 14:47 → 6WM 16:53
PROC: 0JH63XZ Insertion of Tunneled Vascular Access Device into Chest Subcutaneous Tissue and Fascia, Percutaneous Approach (ICD-10-PCS; 2018-11-14 16:00)
PROC: 02H633Z Insertion of Infusion Device into Right Atrium, Percutaneous Approach (ICD-10-PCS; 2018-11-14 16:00)
PROC: B543ZZA Ultrasonography of Right Jugular Veins, Guidance (ICD-10-PCS; 2018-11-14 16:00)
PROC: B513ZZA Fluoroscopy of Right Jugular Veins, Guidance (ICD-10-PCS; 2018-11-14 16:00)
PROC: 0QSG04Z Reposition Right Tibia with Internal Fixation Device, Open Approach (ICD-10-PCS; principal; 2018-11-14 16:28)
PROC: 5A1D70Z Performance of Urinary Filtration, Intermittent, Less than 6 Hours Per Day (ICD-10-PCS; 2018-11-14 16:28)
PROC: 30233K1 Transfusion of Nonautologous Frozen Plasma into Peripheral Vein, Percutaneous Approach (ICD-10-PCS; 2018-11-14 16:28)
PROC: 30233N1 Transfusion of Nonautologous Red Blood Cells into Peripheral Vein, Percutaneous Approach (ICD-10-PCS; 2018-11-14 16:28)
DX: S82.391B Other fracture of lower end of right tibia, initial encounter for open fracture type I or II (principal); S82.831B Other fracture of upper and lower end of right fibula, initial encounter for open fracture type I or II; N18.6 End stage renal disease; Z68.41 Body mass index [BMI] 40.0-44.9, adult; N17.9 Acute kidney failure, unspecified; D62 Acute posthemorrhagic anemia; I12.0 Hypertensive chronic kidney disease with stage 5 chronic kidney disease or end stage renal disease; E87.2 Acidosis; D63.8 Anemia in other chronic diseases classified elsewhere; E66.9 Obesity, unspecified; E11.65 Type 2 diabetes mellitus with hyperglycemia; E87.5 Hyperkalemia; E11.22 Type 2 diabetes mellitus with diabetic chronic kidney disease; S91.302A Unspecified open wound, left foot, initial encounter; E11.42 Type 2 diabetes mellitus with diabetic polyneuropathy; Z79.4 Long term (current) use of insulin; Z99.2 Dependence on renal dialysis; V58.4XXA Person boarding or alighting a pick-up truck or van injured in noncollision transport accident, initial encounter; Y92.410 Unspecified street and highway as the place of occurrence of the external cause
CPT/HCPCS: 36415; 36430; 71045; 73590; 76775; 76937; 80048; 80053; 80061; 80069; 80202; 80307; 81001; 81003; 82040; 82043; 82306; 82570; 82652; 82962; 83036; 83735; 83970; 84100; 84155; 84156; 84165; 84166; 84300; 84443; 85025; 85610; 85730; 86320; 86325; 86706; 86850; 86900; 86901; 86920; 87086; 87340; 90471; 90715; 90935; 93005; 93306; 96374; 97110; 97162; 97530; 99285-25